=== PATIENT | female | born 1985 | race Caucasian/White ===

== ENCOUNTER 2017-09-22 05:06 | Outpatient (CLI) | payer OTHER ==
[~2017-09-22] VITALS: Ht 157.5 cm; Wt 86.3 kg
[2017-09-22 05:16] VITALS: BP 128/57
[2017-09-22] MEDS ORDERED: PREN-3 PO (05:20)
== END 2017-09-22 06:47 | disposition home or self-care (01) ==
LOC: LDOP 05:06
PROVIDERS: ATTEND Obstetrics & Gynecology
DX: O26.893 Other specified pregnancy related conditions, third trimester (principal); R10.9 Unspecified abdominal pain; Z3A.38 38 weeks gestation of pregnancy
CPT/HCPCS: 59025; 99201; 99211; G0463

== ENCOUNTER 2017-09-29 05:52 | Inpatient (IN) | payer OTHER ==
[~2017-09-29] VITALS: Ht 157.5 cm; Wt 88.1 kg
[~2017-09-29 05:52] MED LIST: PREN-3 PO
[2017-09-29] MEDS ORDERED: OXYTOCIN 30U/ 0.9% NaCL 500ML 500 ML IV ONE (05:56)
[2017-09-29] MEDS ORDERED: OXYTOCIN 30U/ 0.9% NaCL 500ML 500 ML IV PRN (05:56)
[2017-09-29] MEDS ORDERED: FENTANYL PF 100 MCG/2ML IV PRN (06:00)
[2017-09-29] MEDS ORDERED: ONDANSETRON 2MG/ML, 2ML IVPush PRN (06:00)
[2017-09-29 06:04] VITALS: BP 124/76
[2017-09-29 06:25] LABS: BASOPHILS # (AUTO) 0.03 x10^3/uL (0-0.1); BASOPHILS % (AUTO) 0 % (0-1); EOSINOPHILS # (AUTO) 0.04 x10^3/uL (0-0.4); EOSINOPHILS % (AUTO) 1 % (1-7); LYMPHOCYTES # (AUTO) 1.99 x10^3/uL (1-3.4); LYMPHOCYTES % (AUTO) 26 % (22-44); MD NO; MEAN CORPUSCULAR HEMOGLOBIN 30.9 pg (27.0-34.8); MEAN CORPUSCULAR HGB CONC 33.8 g/dL (32.4-35.8); MEAN CORPUSCULAR VOLUME 91.7 fL (80-100); MONOCYTES # (AUTO) 0.43 x10^3/uL (0.2-0.8); MONOCYTES % (AUTO) 6 % (2-9); NEUTROPHILS % (AUTO) 68 % (42-75); PLATELET COUNT 189 x10^3/uL (130-400); RED BLOOD COUNT 4.25 x10^6/uL (3.82-5.3); RED CELL DISTRIBUTION WIDTH 13.6 % (9.6-15.2)
[2017-09-29] MEDS: LACTATED RINGERS 1,000 ML IV SCH ×2 (06:27→13:09)
[2017-09-29] MEDS ORDERED: MISOPROSTOL 200 MCG TABLET ONE (06:37)
[2017-09-29] MEDS ORDERED: LIDOCAINE 2%, 20ML ONE (06:37)
[2017-09-29] MEDS ORDERED: NEWBORN KIT ONE (06:37)
[2017-09-29] MEDS ORDERED: OXYTOCIN 30U/ 0.9% NaCL 500ML 500 ML ONE ×2 (06:37→15:39)
[2017-09-29] MEDS ORDERED: FENTANYL PF 100 MCG/2ML ONE ×2 (12:08→13:32)
[2017-09-29] MEDS: FENTANYL PF 100 MCG/2ML IVPush PRN ×2 (12:10→13:38)
[2017-09-29] MEDS ORDERED: LIDOCAINE 1%, 50ML ONE (12:50)
[2017-09-29] MEDS ORDERED: FENTANYL/BUPIV./NS/PF 250 ML EPIDCONT SCH (14:03)
[2017-09-29] MEDS ORDERED: FENTANYL PF 500 MCG, BUPIVACAINE/PF 0.5%, 30ML 62.5 ML in SODIUM CHLORIDE 0.9% 177.5 ML EPIDCONT SCH (14:30)
[2017-09-29] MEDS: OXYTOCIN 30U/ 0.9% NaCL 500ML 500 ML IV SCH (15:04)
[2017-09-29] MEDS ORDERED: IBUPROFEN 600 MG TABLET ONE (15:12)
[2017-09-29] MEDS: IBUPROFEN 600 MG TABLET PO PRN ×2 (15:15→21:00)
[2017-09-29] MEDS ORDERED: OXYcodone/APAP 5/325MG TABLET PO PRN (15:30)
[2017-09-29] MEDS ORDERED: MISOPROSTOL 200 MCG TABLET PR PRN (15:30)
[2017-09-29] MEDS ORDERED: OXYcodone/APAP 5/325MG TABLET ONE (15:43)
[2017-09-29 18:00] VITALS: BP 116/75
[2017-09-29 20:45] VITALS: BP 119/76
[2017-09-29] MEDS: DOCUSATE 100 MG CAPSULE PO PRN (21:00)
[2017-09-29 23:36] LABS: BASOPHILS # (AUTO) 0.06 x10^3/uL (0-0.1); BASOPHILS % (AUTO) 0 % (0-1); EOSINOPHILS % (AUTO) 0 % (1-7); LYMPHOCYTES # (AUTO) 1.66 x10^3/uL (1-3.4); LYMPHOCYTES % (AUTO) 11 % (22-44); MD NO; MEAN CORPUSCULAR HEMOGLOBIN 31.6 pg (27.0-34.8); MEAN CORPUSCULAR HGB CONC 34.4 g/dL (32.4-35.8); MEAN CORPUSCULAR VOLUME 91.9 fL (80-100); MEAN PLATELET VOLUME 8.9 fL (7.4-10.4); MONOCYTES # (AUTO) 0.46 x10^3/uL (0.2-0.8); MONOCYTES % (AUTO) 3 % (2-9); NEUTROPHILS # (AUTO) 12.59 x10^3/uL (1.8-6.8); NEUTROPHILS % (AUTO) 85 % (42-75); PLATELET COUNT 162 x10^3/uL (130-400); RED CELL DISTRIBUTION WIDTH 13.7 % (9.6-15.2)
[2017-09-30 00:10] VITALS: BP 106/63
[2017-09-30] MEDS: OXYTOCIN 30U/ 0.9% NaCL 500ML 500 ML IV SCH ×2 (01:04→11:04)
[2017-09-30] MEDS: IBUPROFEN 600 MG TABLET PO PRN ×2 (03:08→09:18)
[2017-09-30 04:10] VITALS: BP 104/66
[2017-09-30 07:08] VITALS: BP 107/70
[2017-09-30] MEDS ORDERED: PRENATAL VIT/IRON/FA 1 EACH TABLET PO SCH (09:00)
[2017-09-30] MEDS: DOCUSATE 100 MG CAPSULE PO PRN (09:17)
[2017-09-30 13:27] VITALS: BP 102/50
[2017-09-30] MEDS ORDERED: IBUP-1222 PO (13:51)
== END 2017-09-30 16:25 | disposition home or self-care (01) | DRG 775 ==
LOC: LDIP 05:52 → 2NW 16:55
PROVIDERS: ADMIT Obstetrics & Gynecology; ATTEND Obstetrics & Gynecology
PROC: 10E0XZZ Delivery of Products of Conception, External Approach (ICD-10-PCS; principal; 2017-09-29)
PROC: 3E033VJ Introduction of Other Hormone into Peripheral Vein, Percutaneous Approach (ICD-10-PCS; 2017-09-29)
DX: O80 Encounter for full-term uncomplicated delivery (principal); Z37.0 Single live birth; Z3A.39 39 weeks gestation of pregnancy
CPT/HCPCS: 36415; 85025; 86850; 86900; J3010; J2590; J7120